=== PATIENT | female | born 1970 | race Caucasian/White ===

== ENCOUNTER 2017-06-26 19:20 | Inpatient (IN) | payer MEDICAID ==
[~2017-06-26] VITALS: Ht 162.6 cm; Wt 58.0 kg
[2017-06-26 22:24] LABS: ABNORMAL IP MESSAGE 1; HEMATOCRIT 23.5 % (37.0-47.0); MEAN CORPUSCULAR HEMOGLOBIN 13.3 pg (29.0-33.0); MEAN CORPUSCULAR HGB CONC 25.1 g/dl (32.0-37.0); MEAN CORPUSCULAR VOLUME 53.2 fl (82.0-101.0); MEAN PLATELET VOLUME 9.8 fl (7.4-10.4); NUCLEATED RED BLOOD CELLS% 0.3 /100WBC (0.0-0.0); PLATELET COUNT 661 10^3/UL (140-415); RED BLOOD COUNT 4.42 10^6/ul (4.20-5.40); RED CELL DISTRIBUTION WIDTH 25.2 % (11.5-14.5); WHITE BLOOD COUNT 8.7 10^3/ul (4.8-10.8)
[2017-06-26 22:32] LABS: HEMOGLOBIN 5.9 g/dl (12.0-16.0); POSITIVE DIFF @See below
[2017-06-26 22:33] LABS: PATH REVIEW? YES-PATH TO CONFIRM
[2017-06-26 22:42] LABS: INR 1.04; PARTIAL THROMBOPLASTIN TIME 29.2 Sec (25.0-35.0); PROTIME 13.6 Sec (12.2-14.2); PT RATIO 1.1
[2017-06-26 23:00] LABS: TROPONIN-I < 0.012 ng/ml (0.00-0.12)
[2017-06-26 23:02] LABS: ALANINE AMINOTRANSFERASE 59 IU/L (13-69); ALBUMIN/GLOBULIN RATIO 1.25; ALKALINE PHOSPHATASE 69 IU/L (42-121); ANION GAP 12 (8-16); ASPARTATE AMINO TRANSFERASE 54 IU/L (15-46); BLOOD UREA NITROGEN 4 mg/dl (7-20); CARBON DIOXIDE 25 mmol/L (21-31); CHLORIDE 107 mmol/L (97-110); CREATININE 0.57 mg/dl (0.44-1.00); GLUCOSE 85 mg/dl (70-220); SODIUM 140 mmol/L (135-144); TOTAL PROTEIN 7.2 g/dl (6.1-8.1)
[2017-06-26 23:29] LABS: BILIRUBIN,INDIRECT 0.1 mg/dl (0-1.1); BILIRUBIN,TOTAL 0.1 mg/dl (0.2-1.3)
[2017-06-26] MEDS ORDERED: DOCU250C58 PO (23:35)
[2017-06-26] MEDS ORDERED: GARL100T PO (23:35)
[2017-06-26] MEDS ORDERED: IBUP800T25 PO ×2 (23:35)
[2017-06-26] MEDS ORDERED: CARI350T29 PO (23:35)
[2017-06-26] MEDS ORDERED: CALC-134 PO (23:35)
[2017-06-26] MEDS ORDERED: FER325 PO (23:35)
[2017-06-27 01:38] VITALS: Ht 162.6 cm; Wt 58.0 kg
[2017-06-27 02:00] VITALS: BP 125/96; RESP 18
[2017-06-27] MEDS ORDERED: ONDANSETRON 4 MG INJ IV PRN (02:00)
[2017-06-27] MEDS ORDERED: ACETAMINOPHEN 325 MG TAB PO PRN (02:00)
[2017-06-27 03:32] LABS: IRON 38 ug/dl (35-150)
[2017-06-27 03:41] LABS: TOTAL IRON BINDING CAPACITY 509 ug/dl (241-421)
[2017-06-27 03:45] VITALS: BP 110/67; PULSE 84; RESP 18
--- NOTE | 2017-06-27 04:43 | ERA ---
ER Documentation Chief Complaint Date/Time DATE: 06/26/17 Chief Complaint sent by outside clinic for abnormal lab- hgb-5.4 HPI The patient is a 47-year-old female, presenting to the ER because of low hemoglobin 5.4, drawn 3 days. She was sent to the ER by her physician. She denies syncope, near syncope, neck pain, chest pain, dyspnea, hematochezia, heavy menstrual. She does not smoke nor drink Past medical history: Anemia Past surgical history: None ROS All systems reviewed and are negative except as per history of present illness. Medications Home Meds Reported Medications Calcium Carbonate/Vitamin D3 (Calcium + Vitamin D Tablet) 1 Each Tablet, 1 EACH PO, TAB 06/26/17 Garlic* (Garlic*) 100 Mg Tablet, 100 MG PO DAILY, TAB 06/26/17 Docusate Sodium* (Colace*) 250 Mg Capsule, 250 MG PO BID, #60 CAP 06/26/17 Carisoprodol* (Carisoprodol*) 350 Mg Tablet, 350 MG PO TID, TAB 06/26/17 Ibuprofen* (Ibuprofen*) 800 Mg Tablet, 800 MG PO Q8, TAB 06/26/17 Ibuprofen* (Ibuprofen*) 800 Mg Tab, MG PO Q6H Y for PAIN, TAB 06/26/17 Ferrous Sulfate* (Ferrous Sulfate*) 325 Mg Tabec, 325 MG PO DAILY, TAB 06/26/17 Allergies Allergies: Coded Allergies: No Known Allergy (Unverified , 06/26/17) PMhx/Soc History of Surgery: No Hx Neurological Disorder: No Hx Respiratory Disorders: No Hx Cardiac Disorders: No Hx Psychiatric Problems: No Hx Miscellaneous Medical Probl: No Hx Alcohol Use: No Hx Substance Use: No Hx Tobacco Use: No Smoking Status: Never smoker Physical Exam Vitals Vital Signs Date Time Temp Pulse Resp B/P Pulse Ox O2 Delivery O2 Flow Rate FiO2 06/26/17 22:13 80 20 128/77 99 Room Air 06/26/17 19:23 97.8 88 20 137/68 99 Physical Exam Const: No acute distress. Pale Head: Atraumatic. Eyes: Icteric conjunctiva. ENT: Normal External Ears, Nose and Mouth. Neck: Full range of motion. No meningismus. Resp: Clear to auscultation bilaterally. Cardio: Regular rate and rhythm. Abd: Soft, non distended, normal bowel sounds, non tender. Skin: No petechiae or rashes. Back: No midline or flank tenderness. Ext: No cyanosis, or edema. Neur: Awake and alert. No focal deficit Psych: Normal Mood and Affect. Result Diagram: 06/26/17220406/26/172204 Results 24 hrs Laboratory Tests Test 06/26/17 22:05 White Blood Count 8.710^3/ul Red Blood Count 4.4210^6/ul Hemoglobin 5.9g/dl Hematocrit 23.5% Mean Corpuscular Volume 53.2fl Mean Corpuscular Hemoglobin 13.3pg Mean Corpuscular Hemoglobin Concent 25.1g/dl Red Cell Distribution Width 25.2% Platelet Count 07717^3/UL Mean Platelet Volume 9.8fl Neutrophils % % Lymphocytes % % Monocytes % % Eosinophils % % Basophils % % Nucleated Red Blood Cells % 0.3/100WBC Neutrophils # (Manual) 410^3/ul Lymphocytes # 10^3/ul Monocytes # 10^3/ul Eosinophils # 10^3/ul Basophils # 10^3/ul Nucleated Red Blood Cells # 10^3/ul Pathologist Review (Hematology) YES-PATH TO CONFIRM Prothrombin Time 13.6Sec Prothrombin Time Ratio 1.1 INR International Normalized Ratio 1.04 Activated Partial Thromboplast Time 29.2Sec Sodium Level 140mmol/L Potassium Level 4.0mmol/L Chloride Level 107mmol/L Carbon Dioxide Level 25mmol/L Anion Gap 12 Blood Urea Nitrogen 4mg/dl Creatinine 0.57mg/dl Glucose Level 85mg/dl Calcium Level 10.0mg/dl Iron Level 38ug/dl Total Iron Binding Capacity 509ug/dl Percent Iron Saturation 7% SAT Ferritin 5.2ng/ml Total Bilirubin 0.1mg/dl Direct Bilirubin 0.00mg/dl Indirect Bilirubin 0.1mg/dl Aspartate Amino Transf (AST/SGOT) 54IU/L Alanine Aminotransferase (ALT/SGPT) 59IU/L Alkaline Phosphatase 69IU/L Troponin I < 0.012ng/ml Total Protein 7.2g/dl Albumin 4.0g/dl Globulin 3.20g/dl Albumin/Globulin Ratio 1.25 Procedures/MDM EKG: Read by emergency physician Rate/Rhythm: Normal Sinus Rhythm 88 beats/min QRS, ST, T-waves: No ST elevation, no T inversion, nonspecific ST abnormality Impression: Abnormal EKG MEDICAL MAKING DECISION: The patient is a 47-year-old female, presenting to the ER because of acute severe anemia. She was treated with 2 units of packed red blood cell The differential diagnoses considered include but are not limited to heavy menstrual, gastritis, peptic ulcer disease, esophageal varices, Sirisha-Davila tear, carcinoma, polyp, hemorrhoid, fissure, diverticulosis, angiodysplasia. Departure Diagnosis: Primary Impression: Severe anemia Condition: Stable Comments I discussed the findings with the patient. I discussed the patient with the on- call hospitalist Dr. Mercado at 11:55 PM who was made aware of the lab, the treatment, the patient condition. The patient is admitted to medical surgery bed The patient's blood pressure was elevated (>120/80) but appears stable without evidence of hypertension emergency or urgency. The patient was counseled about the risks of hypertension and urged to pursue outpatient monitoring and therapy within a week with their primary care physician. MERRILL ANTON MD Jun 27, 2017 04:43
--- NOTE | 2017-06-27 07:37 | HP ---
Date/Time of Note Date/Time of Note DATE: 06/27/17 TIME: 07:25 Assessment/Plan VTE Prophylaxis VTE Prophylaxis Intervention: SCD's Lines/Catheters [facility]from [facility] Saline Lock Assessment/Plan Assessment/Plan 1. Severe iron deficiency anemia -will transfuse blood -Iron panel consistent with severe iron deficiency. Will start IV iron -will order FOBT -Pelvic/vaginal ultrasound to evaluate for fibroid -GI consult 2. Thrombocytosis -Monitor for now HPI/ROS Admit Date/Time Admit Date/Time Jun 26, 2017 at 23:58 Hx of Present Illness This is a 47-year-old female with a history of iron deficiency anemia who was sent by PMD for severe anemia with hemoglobin of about 5.4. When she presented here, her hemoglobin was found to be 5.9. Patient is accompanied by her daughter who also provided history. Patient does not have any complain saying that she actually feels well. On further questioning, she did report dark stool , which daughter attributed to ferrous sulfate. Denied hematemesis or BRBPR. Denied history of EGD or colonoscopy. She has regular menses and denied menorrhagia. Patient has recently been taking ibuprofen for pain. But it seems like she was diagnosed with iron deficiency prior NSAID use. . PMH/Family/Social Past Medical History Medical History: other (Iron deficiency anemia) Social History Alcohol Use: none Smoking Status: Never smoker Drug Use: none Exam/Review of Systems Vital Signs Vitals Vital Signs Date Time Temp Pulse Resp B/P Pulse Ox O2 Delivery O2 Flow Rate FiO2 06/27/17 03:45 98.4 84 18 110/67 98 Room Air Exam Constitutional: alert, oriented, well developed Head: atraumatic, normocephalic Eyes: EOMI, PERRL Respiratory: clear to auscultation, normal air movement Cardiovascular: nl pulses, regular rate and rhythm Gastrointestinal: non-tender, soft Extremities: normal pulses Labs Result Diagram: 06/26/17220406/26/172204 Medications Medications Current Medications Ondansetron HCl (Zofran Inj) 4 mg Q6H PRN IV NAUSEA AND/OR VOMITING; Start at 02:00 Acetaminophen (Tylenol Tab) 650 mg Q6H PRN PO PAIN AND OR ELEVATED TEMP; Start 06/27/17 at 02:00 Carisoprodol (Soma) 350 mg TID PO ; Start 06/27/17 at 09:00 Docusate Sodium (Colace) 250 mg BID PO ; Start 06/27/17 at 09:00 Ferrous Sulfate (Ferrous Sulfate (Ec)) 325 mg DAILY PO ; Start 06/27/17 at 09:00 MARY DING MD Jun 27, 2017 07:35
[2017-06-27 07:39] VITALS: BP 105/56; RESP 18
[2017-06-27] MEDS: DOCUSATE SODIUM 250 MG CAP PO SCH ×2 (08:53→21:12)
[2017-06-27] MEDS: CARISOPRODOL 350 MG TAB PO SCH ×3 (08:53→21:03)
[2017-06-27] MEDS ORDERED: SOD FERRIC GLUC COMPLX 125 MG in SOD CHLORIDE 0.9% 100 ML IVPB SCH (09:00)
[2017-06-27] MEDS ORDERED: FERROUS SULFATE (EC) 325 MG TAB PO SCH (09:00)
--- NOTE | 2017-06-27 09:15 | RADRPT ---
PROCEDURE: US Pelvis CLINICAL INDICATION: Fibroids, pain TECHNIQUE: Multiple sonographic images of the pelvis were obtained utilizing a transabdominal and endovaginal technique. The images were reviewed on a PACS workstation. COMPARISON: None. FINDINGS: The uterus measures 9.3 x 5.4 x 5.6 cm. The endometrial echo complex measures 10 mm in thickness. Several sub-centimeter Nabothian cysts are identified. There is a 2.5 cm posterior submucosal fibroid at the level of the upper body, to the right of midli ne, without significant anterior displacement of the endometrium. There is a 2.1 cm anterior intramural fibroid at the level of the upper body. There are 2 adjacent fibroids measuring 1.1 cm in diameter each an intramural location anteriorly. The right ovary measures 2.9 x 1.4 x 1.7 cm. The left ovary measures 3.4 x 2.1 x 2.3 cm. There is no rmal vascular flow in both ovaries. No significant ovarian lesions are seen. No significant pelvic free fluid is identified. IMPRESSION: Multiple uterine fibroids are identified measuring up to 2.5 cm. Bilateral ovaries and adnexa are unremarkable. RPTAT: EE Physician Pedrito Date Time Electronically viewed and signed by Physician Pedrito on 06/27/2017 09:15 /
[2017-06-27] MEDS: MEGESTROL 40 MG TAB PO SCH (12:01)
--- NOTE | 2017-06-27 13:43 | PN ---
Date/Time of Note Date/Time of Note DATE: 06/27/17 TIME: 13:40 Assessment/Plan VTE Prophylaxis VTE Prophylaxis Intervention: SCD's Lines/Catheters [facility] Saline Lock Assessment/Plan Chief Complaint/Hosp Course Assessment and plan: 47-year-old female with a history of iron deficiency anemia who was sent by PMD for severe anemia with hemoglobin of about 5.4. 1. Severe iron deficiency anemia: Iron levels are low and TIBC is high. Patient getting blood transfusion, and pelvic ultrasound showed numerous fibroids. -Continue transfuse blood -Continue IV iron -Follow-up FOBT -We will get DIRECTOR OF ACADEMIC SUPPORT consult given pelvic ultrasound findings 2. Thrombocytosis -Monitor for now Problems: Subjective 24 Hr Interval Summary Free Text/Dictation Patient had pelvic ultrasound performed. Presently getting blood transfusion. Exam/Review of Systems Vital Signs Vitals Vital Signs Date Time Temp Pulse Resp B/P Pulse Ox O2 Delivery O2 Flow Rate FiO2 06/27/17 07:39 98.0 70 18 105/56 96 06/27/17 03:45 Room Air Exam Constitutional: alert, oriented, well developed Head: atraumatic, normocephalic Eyes: EOMI, PERRL Respiratory: clear to auscultation, normal air movement Cardiovascular: nl pulses, regular rate and rhythm Gastrointestinal: non-tender, soft Extremities: normal pulses Results Result Diagram: 06/26/17220406/26/172204 Results 24 hrs Laboratory Tests Test 06/26/17 22:05 White Blood Count 8.7 Red Blood Count 4.42 Hemoglobin 5.9 *L Hematocrit 23.5 L Mean Corpuscular Volume 53.2 L Mean Corpuscular Hemoglobin 13.3 L Mean Corpuscular Hemoglobin Concent 25.1 L Red Cell Distribution Width 25.2 H Platelet Count 661 H Mean Platelet Volume 9.8 Neutrophils % Lymphocytes % Monocytes % Eosinophils % Basophils % Nucleated Red Blood Cells % 0.3 H Neutrophils # (Manual) 4 Lymphocytes # Monocytes # Eosinophils # Basophils # Nucleated Red Blood Cells # Pathologist Review (Hematology) YES-PATH TO CONFIRM Prothrombin Time 13.6 Prothrombin Time Ratio 1.1 INR International Normalized Ratio 1.04 Activated Partial Thromboplast Time 29.2 Sodium Level 140 Potassium Level 4.0 Chloride Level 107 Carbon Dioxide Level 25 Anion Gap 12 Blood Urea Nitrogen 4 L Creatinine 0.57 Glucose Level 85 Calcium Level 10.0 Iron Level 38 Total Iron Binding Capacity 509 H Percent Iron Saturation 7 L Ferritin 5.2 L Total Bilirubin 0.1 L Direct Bilirubin 0.00 Indirect Bilirubin 0.1 Aspartate Amino Transf (AST/SGOT) 54 H Alanine Aminotransferase (ALT/SGPT) 59 Alkaline Phosphatase 69 Troponin I < 0.012 Total Protein 7.2 Albumin 4.0 Globulin 3.20 Albumin/Globulin Ratio 1.25 Medications Medications Current Medications Ondansetron HCl (Zofran Inj) 4 mg Q6H PRN IV NAUSEA AND/OR VOMITING; Start at 02:00 Acetaminophen (Tylenol Tab) 650 mg Q6H PRN PO PAIN AND OR ELEVATED TEMP; Start 06/27/17 at 02:00 Carisoprodol (Soma) 350 mg TID PO Last administered on 06/27/17 08:53; Admin Dose 350 MG; Start 06/27/17 at 09:00 Docusate Sodium 250 mg 250 mg BID PO Last administered on 06/27/17 08:53; Admin Dose 250 MG; Start 06/27/17 at 09:00 Ferric Sodium Gluconate Complex/ Sodium Chloride (Ferrlecit/NS) 110 ml @ 100 mls/hr Q24H IVPB Last administered on 06/27/17 08:54; Admin Dose 100 MLS/HR; Start 06/27/17 at 09:00; Stop 06/29/17 at 10:05 Megestrol Acetate (Megace) 40 mg DAILY PO Last administered on 06/27/17 12:01 ; Admin Dose 40 MG; Start 06/27/17 at 10:00 REENA GENTILE Jun 27, 2017 13:43
[2017-06-27 14:00] VITALS: BP 131/62; RESP 18
[2017-06-27 16:06] LABS: ABNORMAL IP MESSAGE 1; HEMOGLOBIN 8.9 g/dl (12.0-16.0); MEAN CORPUSCULAR HGB CONC 28.2 g/dl (32.0-37.0); MEAN CORPUSCULAR VOLUME 60.4 fl (82.0-101.0); NUCLEATED RED BLOOD CELLS% 0.6 /100WBC (0.0-0.0); PLATELET COUNT 588 10^3/UL (140-415); RED BLOOD COUNT 5.23 10^6/ul (4.20-5.40); WHITE BLOOD COUNT 8.6 10^3/ul (4.8-10.8)
[2017-06-27 16:12] LABS: HEMATOCRIT 31.6 % (37.0-47.0)
[2017-06-27 16:13] LABS: POSITIVE DIFF @See below; RED CELL DISTRIBUTION WIDTH 34.5 % (11.5-14.5)
[2017-06-27 16:34] LABS: ALBUMIN 3.9 g/dl (3.3-4.9); ALBUMIN/GLOBULIN RATIO 1.25; BILIRUBIN,INDIRECT 0.5 mg/dl (0-1.1); BILIRUBIN,TOTAL 0.5 mg/dl (0.2-1.3); CALCIUM 9.8 mg/dl (8.4-10.2); CREATININE 0.65 mg/dl (0.44-1.00)
[2017-06-27 16:56] LABS: EOSINOPHILS # 0.3 10^3/ul (0.0-0.5); LYMPHOCYTES # 2.5 10^3/ul (0.8-2.9); MONOCYTE # 0.6 10^3/ul (0.3-0.9); MONOCYTES % (M) 7 % (0-11); NEUTROPHIL # 5.2 10^3/ul (1.6-7.5)
[2017-06-27 16:57] LABS: ANISOCYTOSIS 2+ (0-0); HYPOCHROMASIA 3+ (0-0); POLYCHROMASIA 1+ (0-0)
[2017-06-27 16:58] LABS: MICROCYTOSIS 2+ (0-0)
[2017-06-27 20:33] VITALS: BP 110/68; RESP 20
--- NOTE | 2017-06-27 23:35 | CONS ---
DATE OF ADMISSION: 06/27/2017 DATE OF CONSULTATION: 06/27/2017 REASON FOR CONSULTATION: This is a consult for Ms. Shy Flores, a 47-year-old multipara, admitted with severe anemia, history of vaginal bleeding. Currently she is not bleeding. PAST MEDICAL HISTORY: Denies. PAST SURGICAL HISTORY: Denies. ALLERGIES: NKDA. PHYSICAL EXAMINATION: VITAL SIGNS: Stable. GENERAL APPEARANCE: Normal. ABDOMEN: Nontender, nondistended. GENITAL: Normal vaginal exam. Ultrasound showed multiple small fibroids and endometrial thickness of 10 mm. IMPRESSION AND PLAN: I do recommend a 47-year-old with fibroid uterus and severe anemia: 1. I do recommend dilatation and curettage and hysteroscopy as outpatient. The patient needs to go to her private drum sprayer to be scheduled for dilatation and curettage and hysteroscopy and endometrial biopsy. The importance of that was extensively discussed with the patient through the chief of staff. The patient was advised that there is a small chance of having a malignancy or endometrial hyperplasia that needs to be addressed immediately on the endometrial biopsy and dilatation and curettage hysteroscopy needs to be done as an outpatient. 2. No acute MICROFILM CLERK intervention is needed at this time due to no active bleeding is noticed and actually the patient is not bleeding. 3. A beta hCG needs to be done, if it is positive, a quantitative beta hCG needs to be performed. If this positive, please let the MICROFILM CLERK team and Labor know. Our extension is [phone]. 4. If there are any new symptoms or any questions, please contact us at [phone]. Thank you for consulting us. Dictated By: Yunior Yi MD /bjorn/austyn /Document#: [id number]
[2017-06-28 02:03] VITALS: BP 113/68; RESP 20
[2017-06-28 06:42] LABS: ABNORMAL IP MESSAGE 1; BASOPHIL # 0.1 10^3/ul (0.0-0.1); BASOPHILS % 0.6 % (0.0-2.0); EOSINOPHILS # 0.2 10^3/ul (0.0-0.5); EOSINOPHILS % 2.6 % (0.0-7.0); HEMATOCRIT 33.5 % (37.0-47.0); HEMOGLOBIN 9.5 g/dl (12.0-16.0); LYMPHOCYTES # 3.3 10^3/ul (0.8-2.9); LYMPHOCYTES % 37.1 % (15.0-51.0); MEAN CORPUSCULAR HEMOGLOBIN 17.2 pg (29.0-33.0); MEAN CORPUSCULAR HGB CONC 28.4 g/dl (32.0-37.0); MEAN CORPUSCULAR VOLUME 60.6 fl (82.0-101.0); MONOCYTE # 0.7 10^3/ul (0.3-0.9); MONOCYTES % 7.8 % (0.0-11.0); NEUTROPHILS % 51.3 % (39.0-77.0); NUCLEATED RED BLOOD CELLS% 0.2 /100WBC (0.0-0.0); RED BLOOD COUNT 5.53 10^6/ul (4.20-5.40); RED CELL DISTRIBUTION WIDTH 33.8 % (11.5-14.5); WHITE BLOOD COUNT 8.8 10^3/ul (4.8-10.8)
[2017-06-28 07:07] LABS: CREATININE 0.64 mg/dl (0.44-1.00); POTASSIUM 3.9 mmol/L (3.5-5.1)
[2017-06-28 07:10] LABS: PLATELET COUNT 665 10^3/UL (140-415); POSITIVE DIFF @See below
[2017-06-28 07:40] VITALS: BP 125/61; RESP 16
[2017-06-28] MEDS: MEGESTROL 40 MG TAB PO SCH (08:18)
[2017-06-28] MEDS: CARISOPRODOL 350 MG TAB PO SCH (08:18)
[2017-06-28] MEDS: DOCUSATE SODIUM 250 MG CAP PO SCH (08:18)
--- NOTE | 2017-06-28 09:28 | PDOCDIS ---
Discharge Instructions CONDITION Patient Condition: Stable HOME CARE INSTRUCTIONS: Diet Instructions: Regular ACTIVITY: Activity Restrictions: Slowly Increase Activity FOLLOW UP/APPOINTMENTS Follow-up Plan Please follow-up with your regular doctor and your SPRAY BOOTH OPERATOR doctor in the clinic in the next 1-2 weeks. REENA GENTILE Jun 28, 2017 09:28
[2017-06-28] MEDS ORDERED: DOCU250C58 PO (09:29)
[2017-06-28] MEDS ORDERED: FER325 PO (09:29)
--- NOTE | 2017-06-28 09:33 | DS ---
Date/Time of Note Date/Time of Note DATE: 06/28/17 TIME: 09:30 Discharge Summary Admission/Discharge Info Admit Date/Time Jun 27, 2017 at 11:26 Discharge Date/Time Discharge Diagnosis 1. Severe iron deficiency anemia: Likely secondary to pelvic ultrasound showing numerous fibroids. Status post blood transfusion, and H/H stable 2. Thrombocytosis Patient Condition: Stable Hospital Course 47-year-old female with a history of iron deficiency anemia who was sent by PMD for severe anemia with hemoglobin of about 5.4. When she presented here, her hemoglobin was found to be 5.9. Patient is accompanied by her daughter who also provided history. Patient does not have any complain saying that she actually feels well. On further questioning, she did report dark stool, which daughter attributed to ferrous sulfate. Denied hematemesis or BRBPR. Denied history of EGD or colonoscopy. She has regular menses and denied menorrhagia. Patient has recently been taking ibuprofen for pain. But it seems like she was diagnosed with iron deficiency prior NSAID use. So patient was admitted to [facility], seen by PARTS CLASSIFIER team. She received blood transfusion, and hemoglobin remained stable. Her pelvic ultrasound did show numerous fibroids. She had no signs of any upper or lower or pelvic bleeding while she was here. Over the course of her hospital stay she was able to ambulate, tolerated p.o. diet. We are waiting for beta hCG test, if it is negative, we will discharge her home today in improved condition. It was recommended by PARTS CLASSIFIER team that the patient follow-up with her PARTS CLASSIFIER doctor in the clinic for possible D&C procedure given that she has fibroids and that is a likely cause of her anemia specifically iron deficiency anemia. She also received iron supplementation. It was recommended the patient stop her NSAID use as this could be contributing to her bleeding as well. See below for full list of discharge medications. Home Meds Active Scripts Docusate Sodium* (Colace*) 250 Mg Capsule, 250 MG PO BID, #60 CAP 2 Refills Prov:REENA GENTILE S. 06/28/17 Ferrous Sulfate* (Ferrous Sulfate*) 325 Mg Tabec, 325 MG PO DAILY, #30 TAB 4 Refills Prov:REENA GENTILE S. 06/28/17 Reported Medications Calcium Carbonate/Vitamin D3 (Calcium + Vitamin D Tablet) 1 Each Tablet, 1 EACH PO, TAB 06/26/17 Garlic* (Garlic*) 100 Mg Tablet, 100 MG PO DAILY, TAB 06/26/17 Carisoprodol* (Carisoprodol*) 350 Mg Tablet, 350 MG PO TID, TAB 06/26/17 Discontinued Reported Medications Ibuprofen* (Ibuprofen*) 800 Mg Tablet, 800 MG PO Q8, TAB 06/26/17 Ibuprofen* (Ibuprofen*) 800 Mg Tab, MG PO Q6H Y for PAIN, TAB 06/26/17 Primary Care Provider Not On Staff Doctor Time spent on discharge: > 30 minutes Pending Labs Laboratory Tests Test 06/27/17 15:13 06/28/17 05:19 06/28/17 07:16 White Blood Count 8.610^3/ul (4.8-10.8) 8.810^3/ul (4.8-10.8) Red Blood Count 5.2310^6/ul (4.20-5.40) 5.5310^6/ul (4.20-5.40) Hemoglobin 8.9g/dl (12.0-16.0) 9.5g/dl (12.0-16.0) Hematocrit 31.6% (37.0-47.0) 33.5% (37.0-47.0) Mean Corpuscular Volume 60.4fl (82.0-101.0) 60.6fl (82.0-101.0) Mean Corpuscular Hemoglobin 17.0pg (29.0-33.0) 17.2pg (29.0-33.0) Mean Corpuscular Hemoglobin Concent 28.2g/dl (32.0-37.0) 28.4g/dl (32.0-37.0) Red Cell Distribution Width 34.5% (11.5-14.5) 33.8% (11.5-14.5) Platelet Count 08954^3/UL (140-415) 26001^3/UL (140-415) Mean Platelet Volume fl (7.4-10.4) fl (7.4-10.4) Neutrophils % % (39.0-77.0) 51.3% (39.0-77.0) Segmented Neutrophils % (Manual) 60% (39-77) Lymphocytes % % (15.0-51.0) 37.1% (15.0-51.0) Lymphocytes % (Manual) 29% (15-51) Monocytes % % (0.0-11.0) 7.8% (0.0-11.0) Monocytes % (Manual) 7% (0-11) Eosinophils % % (0.0-7.0) 2.6% (0.0-7.0) Eosinophils % (Manual) 4.0% (0.0-7.0) Basophils % % (0.0-2.0) 0.6% (0.0-2.0) Nucleated Red Blood Cells % 0.6/100WBC (0.0-0.0) 0.2/100WBC (0.0-0.0) Neutrophils # 5.210^3/ul (1.6-7.5) Neutrophils # (Manual) 10^3/ul (1.7-7.5) 410^3/ul (1.7-7.5) Absolute Lymphocytes (Manual) 2.410^3/ul (0.8-2.9) Lymphocytes # 2.510^3/ul (0.8-2.9) 3.310^3/ul (0.8-2.9) Monocytes # 0.610^3/ul (0.3-0.9) 0.710^3/ul (0.3-0.9) Absolute Monocytes (Manual) 0.610^3/ul (0.3-0.9) Eosinophils # 0.310^3/ul (0.0-0.5) 0.210^3/ul (0.0-0.5) Basophils # 10^3/ul (0.0-0.1) 0.110^3/ul (0.0-0.1) Nucleated Red Blood Cells # 10^3/ul (0.0-0.0) 0.010^3/ul (0.0-0.0) Polychromasia 1+ (0-0) Hypochromasia 3+ (0-0) Anisocytosis 2+ (0-0) Microcytosis 2+ (0-0) Sodium Level 139mmol/L (135-144) 140mmol/L (135-144) Potassium Level 4.0mmol/L (3.5-5.1) 3.9mmol/L (3.5-5.1) Chloride Level 108mmol/L (97-110) 106mmol/L (97-110) Carbon Dioxide Level 22mmol/L (21-31) 25mmol/L (21-31) Anion Gap 13 (8-16) 13 (8-16) Blood Urea Nitrogen 6mg/dl (7-20) 10mg/dl (7-20) Creatinine 0.65mg/dl (0.44-1.00) 0.64mg/dl (0.44-1.00) Glucose Level 96mg/dl (70-220) 85mg/dl (70-220) Calcium Level 9.8mg/dl (8.4-10.2) 10.0mg/dl (8.4-10.2) Total Bilirubin 0.5mg/dl (0.2-1.3) Direct Bilirubin 0.00mg/dl (0.00-0.20) Indirect Bilirubin 0.5mg/dl (0-1.1) Aspartate Amino Transf (AST/SGOT) 80IU/L (15-46) Alanine Aminotransferase (ALT/SGPT) 84IU/L (13-69) Alkaline Phosphatase 72IU/L (42-121) Total Protein 7.0g/dl (6.1-8.1) Albumin 3.9g/dl (3.3-4.9) Globulin 3.10g/dl (1.3-3.2) Albumin/Globulin Ratio 1.25 Lab Scanned Report BLOOD [id number] REENA GENTILE Jun 28, 2017 09:33
== END 2017-06-28 13:45 | disposition home or self-care (01) | DRG 812 ==
LOC: E/R 19:20 → MS2 23:58 → OBSVTOIN 06-27 11:26 → MS2 06-28 06:55
PROVIDERS: ADMIT Internal Medicine; ATTEND Internal Medicine
PROC: 30233N1 Transfusion of Nonautologous Red Blood Cells into Peripheral Vein, Percutaneous Approach (ICD-10-PCS; principal; 2017-06-27)
DX: D50.9 Iron deficiency anemia, unspecified (principal); I10 Essential (primary) hypertension; D25.9 Leiomyoma of uterus, unspecified; D47.3 Essential (hemorrhagic) thrombocythemia
CPT/HCPCS: 36415; 36430; 76830; 76856; 80048; 80053; 82728; 83540; 84484; 84703; 85025; 85610; 85730; 86850; 86900; 86901; 86920; 93005; G0378; J2916; P9016